=== PATIENT | female | born 2000 | race Caucasian/White ===

== ENCOUNTER 2022-02-02 17:06 | Outpatient (REF) | payer MEDICAID, SELFPAY ==
[2022-02-04 11:06] LABS: COVID-19 RT-PCR UVMMC Result Negative (Negative)
== END 2022-02-02 17:07 | disposition home or self-care (01) ==
LOC: LBN 17:06
PROVIDERS: Visit Provider Physician Assistant Medical
DX: J02.9 Acute pharyngitis, unspecified (principal); Z20.822 Contact with and (suspected) exposure to COVID-19
CPT/HCPCS: U0003; 87070

== ENCOUNTER 2022-02-06 23:59 | Emergency (ER) | payer MEDICAID, OTHER, SELFPAY ==
[2022-02-07 00:04] VITALS: BP 123/71; PULSE 104; RESP 17; TEMP 37.1; O2SAT 94
[2022-02-07 00:14] LABS: Source Nasal/Nares
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
[2022-02-07 00:20] LABS: Abs Immature Grans 0.03 10^3/uL (0.0-0.06); Absolute Basophil Count 0.04 10^3/uL (0.0-0.2); Absolute Eosinophil Count 0.19 10^3/uL (0.0-0.7); Absolute Lymphocyte Count 1.64 10^3/uL (1.2-3.4); Absolute Monocyte Count 0.63 10^3/uL (0.1-0.8); Absolute Neutrophil Count 6.53 10^3/uL (1.2-6.7); Basophils % 0.4; Eosinophils % 2.1; HCT 33.4 % (36.0-46.0); HGB 10.9 g/dL (11.2-15.7); Immature Grans % 0.3; Lymphocytes % 18.1; MCH 29.5 pg (27.0-33.0); MCHC 32.6 % (32.0-36.0); MCV 91 fL (80-95); MPV 10.1 fL (8.0-11.0); Neutrophils % 72.1; Platelet Count 273 10^3/uL (130-400); RBC 3.69 10^6/uL (3.93-5.22); RDW 13.1 % (11.7-14.6); RDW-SD 42.6 fL; WBC 9.06 10^3/uL (4.4-10.8)
[2022-02-07 00:36] LABS: ALT 48 U/L (14-59); AST 30 U/L (15-37); Albumin 3.7 g/dL (3.4-5.0); Alkaline Phosphatase 126 U/L (46-116); Anion Gap 8.9 mmol/L (3-11); BUN 11 mg/dL (7-18); Bilirubin, Total 0.2 mg/dL (0.2-1.0); CO2 25.1 mmol/L (21.0-32.0); CREATININE 0.7 mg/dL (0.55-1.02); Calcium 8.4 mg/dL (8.5-10.1); Chloride 104 mmol/L (98-107); Glucose 94 mg/dL (74-106); Potassium 3.3 mmol/L (3.5-5.1); Sodium 138 mmol/L (136-145); Total Protein 7.3 g/dL (6.4-8.2)
[2022-02-07 00:38] LABS: Salicylate < 2.8 mg/dL (<2.8)
[2022-02-07 00:55] LABS: TSH (W/Ref FT4) 1.09 uIU/mL (0.52-4.13)
[2022-02-07 00:57] LABS: Acetaminophen < 2 ug/mL (10-30); ETHANOL BLOOD < 3.0 mg/dL (<10)
[2022-02-07 01:12] LABS: COVID-19 PCR Negative (Negative)
[2022-02-07 02:13] LABS: Bilirubin Negative (Negative); Blood Small (Negative); Clarity Sl Cloudy (Clear); Glucose Negative (Negative); Ketones Negative (Negative); Leukocyte Esterase Moderate (Negative); Nitrite Negative (Negative); Specific Gravity 1.025 (1.005-1.025); Urobilinogen 0.2 EU/dL (Up TO 0.2)
[2022-02-07] MEDS: Emtricitabine/Tenofovir 200 mg/300 mg TAB 1 EACH PO (02:19)
[2022-02-07] MEDS: Raltegravir Potassium 400 MG TAB PO (02:19)
[2022-02-07] MEDS: Doxycycline Hyclate 100 MG CAP PO (02:19)
[2022-02-07] MEDS: metroNIDAZOLE 500 MG TAB PO (02:20)
[2022-02-07 02:26] LABS: Bacteria Moderate HPF (Negative); Crystals Negative HPF (Negative); Epithelial Cells Few HPF (Negative); WBC 20-50 HPF (0-5)
[2022-02-07 02:27] LABS: C & S Indicated? Yes; Casts Negative LPF (Negative); Mucus Negative (Negative)
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
[2022-02-07 02:33] LABS: *AMPHETAMINES SCREEN URINE Negative (Negative); *BARBITURATES SCREEN URINE Negative (Negative); *BENZODIAZEPINES SCREEN URINE Negative (Negative); Cannabinoids THC Negative (Negative); Cocaine Screen,Urine Negative (Negative); METHADONE URINE SCREEN Negative (Negative); OPIATES URINE SCREEN Negative (Negative); Tricyclic Antidepressants Negative (Negative)
[2022-02-07] MEDS: Levonorgestrel 1.5 MG KIT/PACKET PO (02:33)
[2022-02-07] MEDS: cefTRIAXone 500 MG VIAL IM (02:33)
[2022-02-08 10:00] LABS: Hepatitis A Antibody IgM Negative (Negative); Hepatitis B Core Antibody Negative (Negative); Hepatitis B surface Ag Negative (Negative); Hepatitis C Ab w Rflx HCV PCR Negative (Negative)
[2022-02-08 10:08] LABS: HIV-1/2 Ag & Ab Screen Negative (Negative)
[2022-02-08 14:43] LABS: Chlamydia Result Negative (Negative); GC Result Negative (Negative)
== END 2022-02-07 03:08 | disposition home or self-care (01) ==
PROVIDERS: Emergency Provider Emergency Medicine
DX: T74.21XA Adult sexual abuse, confirmed, initial encounter (principal)
CPT/HCPCS: 80053; 80307; 81025; 86704; 86709; 86803; 87340; 87389; 87491; 87591; 87635; 96372; 99285; 80320; 80329; 81003; 81015; 84443; 85025; 87086; J0696

== ENCOUNTER 2022-02-08 17:39 | Emergency (ER) | payer MEDICAID, SELFPAY ==
[2022-02-08 17:47] VITALS: BP 127/67; PULSE 100; RESP 20; TEMP 36.7; O2SAT 100
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
[2022-02-08] MEDS: hydrOXYzine HCL 25 MG TAB PO (22:15)
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
--- NOTE | 2022-02-09 10:29 | NUR.NOTE ---
Nursing Note: Provider notes and RN note faxed to [facility] [place].
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
--- NOTE | 2022-02-09 12:17 | PDOC.ERCMACT ---
- If Service Date Differs Date of service: 02/09/22 Time of Service: 12:17 Care Management Activity Note Adeline presents in the ED for depression and anxiety. She meets with [facility], this morning and enters into a safety plan. She will follow up with outpatient therapy and will do check-in phone calls with [facility] over the next three days. [facility] coordinates referrals to crisis beds around the state. Adeline is discharged to the care of [facility] who will provide support and short-term housing for Adeline.
== END 2022-02-09 11:02 | disposition home or self-care (01) ==
PROVIDERS: Emergency Provider Emergency Medicine
DX: F43.23 Adjustment disorder with mixed anxiety and depressed mood (principal); Z91.410 Personal history of adult physical and sexual abuse
CPT/HCPCS: 99283

== ENCOUNTER 2022-02-13 21:06 | Inpatient (IN) | payer MEDICAID, SELFPAY ==
[2022-02-13 21:09] VITALS: BP 135/81; PULSE 108; RESP 16; TEMP 36.2; O2SAT 95
[2022-02-13 21:40] LABS: Bilirubin Negative (Negative); Blood Trace-intact (Negative); Clarity Sl Cloudy (Clear); Glucose Negative (Negative); Ketones Negative (Negative); Leukocyte Esterase Small (Negative); Nitrite Negative (Negative); Specific Gravity >= 1.030 (1.005-1.025); Urobilinogen 0.2 EU/dL (Up TO 0.2)
--- NOTE | 2022-02-13 21:45 | DI.CT_ITS ---
Exam(s) CT ABDOMEN PELVIS W EXAM: CT ABDOMEN PELVIS W CLINICAL HISTORY: RUQ abd Pain, Nausea, Vomiting. TECHNIQUE: Imaging Protocol: Axial computed tomography images with coronal and sagittal reformatted images were created and reviewed CONTRAST MATERIAL: Intravenous: Omnipaque 100cc Oral: None COMPARISON: No exams were available for comparison FINDINGS: VISUALIZED LUNG BASES: No nodules nor pleural effusions evident. ABDOMEN: There is no ascites. LIVER: Liver is hypodense implying steatosis. In the medial aspect of the left hepatic lobe there is a 1.5 x 1.3 cm area of uniform enhancement, having benign appearance, probably small hemangioma or o ther benign non-cystic lesion. GALLBLADDER/BILIARY: No obvious gallbladder pathology. CBD is not dilated. PANCREAS: No evidence of pancreatic mass nor dilatation of the pancreatic duct. SPLEEN: Spleen is not enlarged. No obvious intrasplenic lesions. Splenic and portal veins are paten t. ADRENALS: There are no significant adrenal masses. KIDNEYS:No cysts evident. No solid renal masses. No calculi nor hydronephrosis.. ABDOMINAL AORTA: Abdominal aorta is not enlarged. LYMPH NODES:Multiple slightly enlarged lymph nodes are noted in the mesentery, ranging up to 1.2 cm. There is are most prominent in the mesentery medial to the ascending-right colon. ABDOMINAL WALL: No evidence of significant anterior abdominal wall nor inguinal hernia. GI: There is no evidence of bowel obstruction, free air, nor abscess. PELVIS: GI: No evidence of appendicitis.No evidence of sigmoid diverticulitis. LYMPH NODES: There is no intrapelvic nor inguinal adenopathy. REPRODUCTIVE: Uterus and adnexal regions unremarkable. No extraovarian adnexal masses. No free flui d in the pelvis. URINARY BLADDER: No calculi nor obvious masses evident OSSEOUS: No significant osseous lesions. IMPRESSION: 1. Hepatic steatosis and mild hepatomegaly. Correlation with a patent blood work recommended to rule out hepatitis. 2. There is also a uniformly enhancing 15 x 13 millimeter finding in the left hepatic lobe which is e ither hemangioma or other benign-appearing non cystic entity. 3. Multiple slightly enlarged right-sided mesenteric lymph nodes, these medial to the ascending-right colon. Possibly indicating mesenteric adenitis. Study 1st read by [facility] RADIATION DOSE DELIVERED: 1,217.15mGy.cm Total DLP DATA REPOSITORY: All CT scans at this facility are submitted to the National Radiology Data Registry (NRDR) Dose Index Registry (DIR) with the [employer] (ACR). RADIATION OPTIMIZATION: All CT scans at this facility use at least one of these dose optimization te chniques: automated exposure control; mA and/or kV adjustment per patient size (includes targeted exa ms where dose is matched to clinical indication); or iterative reconstruction.
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
[2022-02-13 21:56] LABS: Abs Immature Grans 0.04 10^3/uL (0.0-0.06); Absolute Basophil Count 0.04 10^3/uL (0.0-0.2); Absolute Eosinophil Count 0.24 10^3/uL (0.0-0.7); Absolute Lymphocyte Count 2.34 10^3/uL (1.2-3.4); Absolute Monocyte Count 0.86 10^3/uL (0.1-0.8); Absolute Neutrophil Count 4.24 10^3/uL (1.2-6.7); Basophils % 0.5; Eosinophils % 3.1; HGB 11.8 g/dL (11.2-15.7); Immature Grans % 0.5; Lymphocytes % 30.2; MCH 28.8 pg (27.0-33.0); MCHC 31.9 % (32.0-36.0); MCV 90 fL (80-95); MPV 9.9 fL (8.0-11.0); Monocytes % 11.1; Neutrophils % 54.6; Platelet Count 290 10^3/uL (130-400); RDW 13.1 % (11.7-14.6); RDW-SD 43.3 fL; WBC 7.76 10^3/uL (4.4-10.8)
[2022-02-13] MEDS: Normal Saline 1,000 ML 1000 ML IV (21:57)
[2022-02-13] MEDS: Normal Saline Flush 10 ML SYR IVP ×2 (21:57→22:00)
[2022-02-13] MEDS: Omnipaque 350 MG/ML 100 ML BTL IJ (21:59)
[2022-02-13 22:04] LABS: Bacteria Moderate HPF (Negative); C & S Indicated? No/Sq. Contamination; Casts Negative LPF (Negative); Crystals Negative HPF (Negative); Epithelial Cells Moderate HPF (Negative); Mucus Moderate (Negative); WBC >50 HPF (0-5)
[2022-02-13 22:11] LABS: ALT 61 U/L (14-59); AST 33 U/L (15-37); Albumin 3.9 g/dL (3.4-5.0); Alkaline Phosphatase 131 U/L (46-116); BUN 8 mg/dL (7-18); Bilirubin, Total 0.3 mg/dL (0.2-1.0); CREATININE 0.5 mg/dL (0.55-1.02); Calcium 8.4 mg/dL (8.5-10.1); Chloride 106 mmol/L (98-107); Glucose 79 mg/dL (74-106); Lipase 47 U/L (73-393); Potassium 3.2 mmol/L (3.5-5.1); Sodium 141 mmol/L (136-145); Total Protein 7.5 g/dL (6.4-8.2)
--- NOTE | 2022-02-13 22:46 | DI.VRAD_ITS ---
PROCEDURE INFORMATION: Exam: CT Abdomen And Pelvis With Contrast Exam date and time: 02/13/2022 10:03 PM Age: 21 years old Clinical indication: Nausea and vomiting; Abdominal pain; Localized; Right upper quadrant (ruq); Patient HX: Ruq abd pain, nausea, vomiting TECHNIQUE: Imaging protocol: Computed tomography of the abdomen and pelvis with contrast. Radiation optimization: All CT scans at this facility use at least one of these dose optimization techniques: automated exposure control; mA and/or kV adjustment per patient size (includes targeted exams where dose is matched to clinical indication); or iterative reconstruction. Contrast material: OMNIPAQUE 350; Contrast volume: 100 ml; Contrast route: INTRAVENOUS (IV); COMPARISON: No relevant prior studies available. FINDINGS: Lungs: Lung bases are clear. Liver: Liver attenuation is low. Negative for mass or abscess. Gallbladder and bile ducts: Normal. No calcified stones. No ductal dilation. Pancreas: Normal. No ductal dilation. Spleen: Normal. No splenomegaly. Adrenal glands: Normal. No mass. Kidneys and ureters: Normal kidneys. Symmetric enhancement. No hydronephrosis. Nondilated ureters. Stomach and bowel: Unremarkable stomach. Nondilated small bowel. Fat planes around loops of small bowel are indistinct. There are no inflammatory changes observed around the colon. Appendix: Normal appendix. Intraperitoneal space: Mild mesenteric fat stranding. No significant free fluid. Negative for free air. Negative for abscess. Vasculature: Unremarkable. No abdominal aortic aneurysm. Lymph nodes: Mesenteric lymph nodes are mildly prominent. Negative for pathologic lymphadenopathy. Urinary bladder: Collapsed urinary bladder. Mild wall thickening questioned. No calcified stones. Unremarkable bladder neck. Reproductive: Unremarkable as visualized. Bones/joints: No compression fracture. No significant disc space narrowing. Normal sacroiliac joints. Soft tissues: Negative for abdominal wall hernia. IMPRESSION: 1. Findings of enteritis with reactive mesenteric inflammation. 2. Consider cystitis. 3. Hepatic steatosis. Dictated and Authenticated by: Neel Gutierrez MD. Ordering:YAHIR Browne MD
--- NOTE | 2022-02-14 01:33 | PDOC.MHCN ---
Date of service: 02/14/22 Time of Service: 01:33 Mental Health Crisis Note Presenting Issue How did you arrive at the ED and why did you come: Client arrived via [facility] with complaints of nausea and vomiting but when she was about to be discharged she made statements of suicide. Precipitating Factors Client endorsed SI and denied HI. She is not showing any signs of delusions at this time. Disposition BEHAVIOR: Cooperative and engaged. Cient shows fair insight and judgement. EYE CONTACT: Consistent. MOOD: Unremarkable by appearance but described extreme depression that is cranky and juan. AFFECT: Congruent with mood. APPETITE: Client reported this was the first day in awhile that she is wanting to eat. SLEEP(trouble falling/staying asleep: Client reported that she wants to sleep all the time. Plan Client will remain at [facility] pending a new assessment in the am. She will be assessed once daily until placement is found. She is not wanting to engage in a crisis bed referral at this time stating she only wants to go to a hospital. Signature Clinician's Name/Title: Candelaria Yepez MS, [facility] Emergency Services Clinician, [facility]
[2022-02-14] MEDS: QUEtiapine 100 MG TAB PO ×2 (01:52→20:38)
[2022-02-14] MEDS: Cyproheptadine 4 MG TAB PO ×2 (02:02→20:42)
[2022-02-14 07:26] VITALS: BP 132/74; PULSE 105; RESP 19; TEMP 36.2; O2SAT 96
[2022-02-14 08:00] LABS: Source Nasal/Nares
[2022-02-14 08:38] LABS: COVID-19 PCR Negative (Negative)
[2022-02-14] MEDS: Cefpodoxime 200 MG TAB PO (09:14)
[2022-02-14 12:08] VITALS: BP 112/73; PULSE 113; RESP 17; TEMP 36.6; O2SAT 96
--- NOTE | 2022-02-14 13:20 | MHPN_ITS ---
Date of service: 02/14/22 Time of Service: 10:20 Mental Health Progress Note Progress Note Progress Note: Presenting Issue: Client is seeking voluntary inpatient treatment. Precipitating Factors Disposition * Behavior: Unremarkable *Eye Contact: Good *Mood: Depressed *Affect: Flat *Appetite: Improved *Sleep(troubel falling/staying asleep): Client reports she is sleeping too much. Plan(please elaborate and include that physician is consulted with plan and/or placement):Client will wait at [facility] until a bed is found. Client's referrals are beign sent to [facility], [facility], [facility], [facility] Clinician's Name , Title, and Signature Loreto Durand, Combination Machine Tender, [facility] Make sure that you are photocopying and submitting this to [facility] records Dept. to be scanned into chart.
--- NOTE | 2022-02-14 13:20 | PDOC.MHPN2 ---
Date of service: 02/14/22 Time of Service: 10:20 Mental Health Progress Note Progress Note Progress Note: Presenting Issue: Client is seeking voluntary inpatient treatment. Precipitating Factors Disposition * Behavior: Unremarkable *Eye Contact: Good *Mood: Depressed *Affect: Flat *Appetite: Improved *Sleep(troubel falling/staying asleep): Client reports she is sleeping too much. Plan(please elaborate and include that physician is consulted with plan and/or placement):Client will wait at [facility] until a bed is found. Client's referrals are beign sent to [facility], [facility], [facility], [facility] [place] [place] Clinician's Name , Title, and Signature Loreto Durand, Senior Director Of Strategy, [facility] Make sure that you are photocopying and submitting this to [facility] records Dept. to be scanned into chart.
--- NOTE | 2022-02-14 13:46 | CMSP_ITS ---
- If Service Date Differs Date of service: 02/14/22 Time of Service: 13:46 Care Management Safety Plan Status: Voluntary - Reason for Wait Reason for Wait: Inpatient Admission Adeline is a 21 year old young woman who presented to the ED with RUQ abdominal pain and nausea and vomiting for 6 days. During the course of her ED visit she informed the provider that she is having suicidal thoughts and has a history of depression. She stated to that she has been hospitalized twice at [facility] and once at [facility]. She is seeking voluntary placement for depression and SI. She was evaluated by [facility] crisis screener Loreto Durand [facility] and referrals have been sent to [facility], [facility], [facility] and [facility]. VOLUNTARY FOR INPATIENT PSYCHIATRIC STABILIZATION. Patient is appropriate in all interactions since arriving at [facility]; Pt has demonstrated appropriate coping and communication skills, has articulated his or her needs and concerns and is fully engaged during staff interactions. Safety plan has been established with patient, and care team, to adhere to patient goals, identify restrictions based on behavioral status, address nutrition, and determine allowed personal belongings, tools for hygiene and personal care. Determine level of activity including ambulation, level of supervision, visitors, and determine privileges based on behaviors and level of engagement by pt. SAFETY PLAN: 1. Will remain on suicide precautions. In Paper Clothes 2. Will remain in room under direct supervision of one-on-one staff at all times provided by [employer]; KACIE, BULK RECEIVER alterations workroom clerk. 3. May have paper cups, plates, finger foods as well as a cardboard spoon with which to eat meals. 4. Follow [facility] Management of the Admitted Behavioral Health Patient policy. 5. Comfort bath system ; shower permitted with escort at RN discretion. 6. No personal belongings-soft items permitted at RN discretion. 7. Visitors-none at this time. 8. Activities: soft cart items approved per RN discretion. 9. Bathroom privileges with escort in the ED, available in room without limitation on M/S. 10. Phone: contact limited to corporate legal intern via cordless phone at RN discretion. 11. Due to VOLUNTARY status, if patient wishes to leave [facility], staff will contact [facility] Crisis Screener ([phone]) and On-Call Program Admin ([phone]) as soon as possible. In the event of elopement, notify [facility] Police ([phone]). Patient is currently voluntarily at [facility] and seeking inpatient admission when a bed becomes available. [facility] Frontline Scrap Yard Worker will continue seeking placement. Please contact the Casing Tier Program Admin ([phone]) and [facility] Scrap Yard Worker ([phone]) for any needed changes in the Safety Plan. Safety plan has been provided to interdepartmental care team.
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
[2022-02-14 15:55] VITALS: BP 112/73; PULSE 113; RESP 17; TEMP 36.6; O2SAT 96
[2022-02-14 16:03] VITALS: BP 108/64; PULSE 104; RESP 21; TEMP 36.6; O2SAT 97
[2022-02-14 16:18] VITALS: BP 108/64; PULSE 104; RESP 21; TEMP 36.6; O2SAT 97
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
--- NOTE | 2022-02-14 17:28 | NUR.NOTE ---
Nursing Note: Nurse to nurse given to Dunia Mabry, given to BROOKE So. Saray states the latest arrival here is 9pm. We can save the bed for her until tomorrow if you cannot get her here before then. Please just call when you know more. Charge nurse made aware of the situation.
[2022-02-14] MEDS: metroNIDAZOLE 500 MG TAB PO (17:34)
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
[2022-02-14 20:32] VITALS: BP 152/71; PULSE 64; RESP 18; TEMP 36.5; O2SAT 94
[2022-02-14] MEDS: Doxycycline Hyclate 100 MG CAP PO (20:37)
[2022-02-14] MEDS: Raltegravir Potassium 400 MG TAB PO (20:37)
[2022-02-14] MEDS: Famotidine 20 MG TAB 10 MG PO (20:38)
[2022-02-15 05:35] VITALS: BP 120/63; PULSE 99; RESP 19; TEMP 36.6; O2SAT 94
[2022-02-15] MEDS: metroNIDAZOLE 500 MG TAB PO (05:38)
[2022-02-15 07:49] VITALS: BP 130/72; PULSE 86; RESP 18; TEMP 36.9; O2SAT 97
[2022-02-15] MEDS: Raltegravir Potassium 400 MG TAB PO (07:55)
[2022-02-15] MEDS: Emtricitabine/Tenofovir 200 mg/300 mg TAB 1 EACH PO (07:55)
[2022-02-15] MEDS: Doxycycline Hyclate 100 MG CAP PO (07:55)
[2022-02-15] MEDS: Famotidine 20 MG TAB 10 MG PO (07:56)
[2022-02-15] MEDS: cloNIDine 0.1 MG TAB PO (07:56)
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
--- NOTE | 2022-02-15 11:14 | PDOC.CMDIS ---
- If Service Date Differs Date of service: 02/15/22 Time of Service: 11:14 LACE Index Scoring Tool - Questions: Length of Stay (in days): 1 Acuity (Admit via E.D.?): Yes E.D. Visits: 3 - Answers: Total Score: 7 Risk of Readmission: Low Risk Care Management Discharge Reason for Hospitalization: depression, SI Discharge Plan: Adeline transported to [facility] today via [facility]. She will follow up with her PCP, [facility], and her discharge plan of care. She is agreeable to inpatient psychiatric treatment. Patient/Family Education Needs: Review discharge instructions and limitations, discussion of self care needs including ask me three. Services Needed at Discharge: Psychiatric Facility ([facility]), Transportation ([employer]) - Disposition Disposition: [facility] Mail Techn[facility]
== END 2022-02-15 09:35 | disposition short-term general hospital (02) | DRG 881 ==
LOC: ER 02-14 15:28 → MS 02-14 15:54
PROVIDERS: Physician Assistant; Registered Nurse Emergency; Admitting Provider Internal Medicine; Emergency Provider Emergency Medicine; Visit Provider Internal Medicine
DX: F32.A Depression, unspecified (principal); N30.00 Acute cystitis without hematuria; R45.851 Suicidal ideations; F43.23 Adjustment disorder with mixed anxiety and depressed mood; R10.11 Right upper quadrant pain; R11.2 Nausea with vomiting, unspecified; Z59.02 Unsheltered homelessness; F12.90 Cannabis use, unspecified, uncomplicated; Z91.410 Personal history of adult physical and sexual abuse; E66.9 Obesity, unspecified; Z68.35 Body mass index [BMI] 35.0-35.9, adult; K76.0 Fatty (change of) liver, not elsewhere classified; K52.89 Other specified noninfective gastroenteritis and colitis
CPT/HCPCS: 80053; 81025; 83690; 87635; 96360; 99285; 74177; 81003; 81015; 83735; 85025; 99222; 99238; J3490

== ENCOUNTER 2023-11-01 21:35 | Emergency (ER) | payer MEDICAID, SELFPAY ==
--- NOTE | 2023-11-01 21:30 | RT.EKG_ITS ---
APPROVED REPORT Exam: Resting ECG Reason for Exam: overdose Patient Location: E HR:71 bpm ECG Measurements Heart Rate 71 AXIS FL 151 P -30 QRSd 103 QRS 38 QT 395 T 43 QTc 430 Conclusion Sinus rhythm...normal P axis, V-rate 60- 99
[2023-11-01 21:39] VITALS: BP 110/52; PULSE 79; RESP 16; TEMP 37.2; O2SAT 96
[2023-11-01 21:44] VITALS: RESP 15
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
[2023-11-01 22:23] VITALS: BP 103/68; PULSE 78; RESP 16; TEMP 36.7; O2SAT 98
== END 2023-11-01 22:24 ==
PROVIDERS: Emergency Provider Emergency Medicine Emergency Medical Services
DX: T43.591A Poisoning by other antipsychotics and neuroleptics, accidental (unintentional), initial encounter (principal)
CPT/HCPCS: 93005; 99282; 93010; 99283